=== PATIENT | male | born 1945 | race Caucasian/White ===

== ENCOUNTER → 2019-08-10 | Outpatient (CLI) | payer MEDICARE, OTHER ==
[~2019-08-10] MED LIST: ASCO500 PO; ASPI81CH PO; CALCAVITDA PO; CORTIZONE-10 PL28 GM TOP; FLAX PO; IBUP400 PO; MAGCHL64ER PO; Multivitamin1 EAC1 PO; NIGHTTIME SLEEP25 MG PO; Omeprazole20 M1 PO; TURMERIC500 MG PO
== END | disposition home or self-care (01) ==
LOC: PLD 11:12 → LAB SHORT 11:12
DX: L85.8 Other specified epidermal thickening (principal)
CPT/HCPCS: 88305

== ENCOUNTER 2021-10-10 08:24 | Day surgery (SDC) | payer MEDICARE, OTHER ==
[~2021-10-10] VITALS: Ht 188 cm; Wt 96.7 kg
[2021-10-10] MEDS ORDERED: FAMO20 (09:14)
[2021-10-10] MEDS ORDERED: TAMS.4ER PO (09:33)
--- NOTE | 2021-10-10 09:44 | NUR ---
10/10/21 [id number] LIAO IN ROOM. CORRECT PT, SITE, PROCEEDURE AND ALLERGIES CONFIRMED. PT ELECTED TO PROCEED. MEDICATED WITH ONE ML VERSED AT 0941. PT TOLERATED WELL. END AT 0976
== END 2021-10-10 10:58 | disposition home or self-care (01) ==
LOC: ORSCSDS 08:24
PROVIDERS: Orthopaedic Surgery
PROC: 01N54ZZ Release Median Nerve, Percutaneous Endoscopic Approach (ICD-10-PCS; principal; 2021-10-10 09:30)
DX: G56.02 Carpal tunnel syndrome, left upper limb (principal); J45.909 Unspecified asthma, uncomplicated; K21.9 Gastro-esophageal reflux disease without esophagitis; Z79.82 Long term (current) use of aspirin; Z79.899 Other long term (current) drug therapy
CPT/HCPCS: J1885; J2250; J7120

== ENCOUNTER 2022-05-13 08:57 | Day surgery (SDC) | payer MEDICARE, OTHER ==
[~2022-05-13] VITALS: Ht 182.9 cm; Wt 93.9 kg
[~2022-05-13 08:57] MED LIST changes: +Acetaminophen325 M1 PO; +FAMO20 PO; +MULVITA PO; +OMEP20ER PO; +TAMS.4ER PO
--- NOTE | 2022-05-14 04:48 | NUR ---
SHIFT SUMMARY POD1 L TKA, AOX4. TOLERATING PO INTAKE. ABLE TO SIT AT EOB, STAND 3XS. PAIN MANAGED WITH 10MG OXY, TORADOL AND TYLENOL. ABLE TO VOID USING URINAL AT BEDSIDE. PATIENT CALLS APPROPRIATELY. VSS. WILL REPORT OFF DAY RN.
[2022-05-14 05:28] LABS: BASOPHILS ABSOLUTE AUTO 0.01 K/mm3 (0.00-0.23); BASOPHILS PERCENT AUTO 0 % (0-2); EOSINOPHILS PERCENT AUTO 0 % (0-6); Hematocrit 37.5 % (37.0-53.0); Hemoglobin 12.4 g/dL (13.5-17.5); IMMATURE GRAN ABSOLUTE AUTO 0.02 K/mm3 (0.00-0.10); IMMATURE GRAN PERCENT AUTO 0 % (0-1); LYMPHOCYTES ABSOLUTE AUTO 1.01 K/mm3 (0.84-5.20); LYMPHOCYTES PERCENT AUTO 15 % (21-46); MONOCYTES ABSOLUTE AUTO 0.59 K/mm3 (0.16-1.47); MONOCYTES PERCENT AUTO 9 % (4-13); Mean Corpuscular HGB 31.2 pg (26.0-34.0); Mean Corpuscular HGB Conc 33.1 g/dL (31.5-36.5); Mean Corpuscular Volume 94 fL (80-100); Mean Platelet Volume 8.6 fL (9.1-12.4); NEUTROPHILS PERCENT AUTO 75 % (41-73); Platelet Count 117 K/mm3 (150-400); RDW Coefficient Variation 13.7 % (11.7-14.2); RDW Standard Deviation 47.1 fL (35.1-46.3); Red Blood Cell Count 3.98 M/mm3 (4.30-5.90); White Blood Cell Count 6.63 K/mm3 (4.00-11.30)
[2022-05-14 05:49] LABS: Bun/Creatinine Ratio 17.1 (12.0-20.0); Creatinine, Blood 1.23 mg/dL (0.60-1.20); Potassium, Blood 4.1 mmol/L (3.5-5.5)
[2022-05-14] MEDS ORDERED: ACET500 PO (10:16)
[2022-05-14] MEDS ORDERED: OXAYDO5 M1 PO (10:17)
--- NOTE | 2022-05-14 11:08 | NUR ---
discharged REVIEWED DC INSTRUCTION W/PT AND SPOUSE; VERBALIZED UNDERSTANDING. CHANGED DRESSING PRIOR TO DC AND PROVIDED AQUAC[employer] CHANGES FOR HOME. PT SIGNED DC PAPERWORK. DC'D IV, CATHETER INTACT. LEFT UNIT IN WC W/POSSESSIONS, DC PAPERWORK AND POLAR PACK TO MEET SPOUSE WAITING OUTSIDE.
== END 2022-05-14 11:00 | disposition home or self-care (01) ==
LOC: ORSCMMR 08:57 → ORD 10:45 → ORSCMMR 10:45 → ORD 14:00 → SURS 16:40 → ORSCMMR 05-14 11:00
PROVIDERS: Orthopaedic Surgery
PROC: 0SRD0J9 Replacement of Left Knee Joint with Synthetic Substitute, Cemented, Open Approach (ICD-10-PCS; principal; 2022-05-13 11:15)
PROC: 8E0Y0CZ Robotic Assisted Procedure of Lower Extremity, Open Approach (ICD-10-PCS; principal; 2022-05-13 11:15)
DX: M17.12 Unilateral primary osteoarthritis, left knee (principal); E78.5 Hyperlipidemia, unspecified; J45.909 Unspecified asthma, uncomplicated; N40.0 Benign prostatic hyperplasia without lower urinary tract symptoms; Z79.82 Long term (current) use of aspirin; Z79.899 Other long term (current) drug therapy
CPT/HCPCS: 27447; 0055T; S2900; 36415; 73560-LT; 80048; 83735; 85025; 97116; 97161; 97530; A9270; C1713; C1776; J0171; J0690; J0735; J1100; J1170; J1885; J2250; J2370; J2405; J2704; J2795; J3010; J7120

== ENCOUNTER → 2022-09-03 | Outpatient (CLI) | payer MEDICARE, OTHER ==
[~2022-09-03] MED LIST changes: +ACET500 PO; +OXAYDO5 M1 PO
== END | disposition home or self-care (01) ==
LOC: PLD 07:33 → LAB SHORT 07:33
DX: L30.8 Other specified dermatitis (principal)
CPT/HCPCS: 88305; 88313

== ENCOUNTER → 2022-12-30 | Outpatient (CLI) | payer MEDICARE, OTHER | END | disposition home or self-care (01) | LOC: LAB SHORT 14:36 → LAB 14:36 | DX: L01.01 Non-bullous impetigo (principal) | CPT/HCPCS: 87070; 87077; 87186; 87205 ==

== ENCOUNTER 2025-06-16 18:36 | Observation (INO) | payer MEDICARE ==
[~2025-06-16] VITALS: Ht 188 cm; Wt 89.9 kg
[2025-06-16 19:30] LABS: BASOPHILS ABSOLUTE AUTO 0.02 K/mm3 (0.00-0.23); BASOPHILS PERCENT AUTO 1 % (0-2); EOSINOPHILS ABSOLUTE AUTO 0.19 K/mm3 (0.00-0.68); EOSINOPHILS PERCENT AUTO 5 % (0-6); Hematocrit 42.7 % (37.0-53.0); Hemoglobin 14.6 g/dL (13.5-17.5); IMMATURE GRAN ABSOLUTE AUTO 0.01 K/mm3 (0.00-0.10); IMMATURE GRAN PERCENT AUTO 0 % (0-1); LYMPHOCYTES ABSOLUTE AUTO 1.59 K/mm3 (0.84-5.20); LYMPHOCYTES PERCENT AUTO 42 % (21-46); MONOCYTES ABSOLUTE AUTO 0.55 K/mm3 (0.16-1.47); MONOCYTES PERCENT AUTO 15 % (4-13); Mean Corpuscular HGB Conc 34.2 g/dL (31.5-36.5); Mean Corpuscular Volume 91 fL (80-100); NEUTROPHILS ABSOLUTE AUTO 1.40 K/mm3 (1.96-9.15); NEUTROPHILS PERCENT AUTO 37 % (41-73); NRBC ABSOLUTE 0.00 K/mm3 (0.00-0.02); NRBC Auto 0.0 /100 WBC (0.0-0.2); Platelet Count 100 K/mm3 (150-400); RDW Coefficient Variation 13.5 % (11.7-14.2); RDW Standard Deviation 45.5 fL (35.1-46.3)
[2025-06-16 20:21] LABS: Alanine Aminotransfer (ALT/SGP 25 U/L (12-78); Albumin, Blood 3.6 g/dL (3.4-5.0); Albumin/Globulin Ratio 1.1 (0.8-1.8); Anion Gap 8 mmol/L (3-11); Aspartate Aminotrans (AST/SGOT 32 U/L (12-37); Bilirubin, Total 0.9 mg/dL (0.1-1.0); Blood Urea Nitrogen 13 mg/dL (8-24); CO2, Blood 27 mmol/L (21-32); Calcium, Blood 8.9 mg/dL (8.5-10.1); Chloride, Blood 105 mmol/L (98-108); Creatinine, Blood 1.25 mg/dL (0.60-1.20); Ethanol (Alcohol), Blood, Med <3 mg/dL; Globulin, Blood 3.2 g/dL (2.2-4.0); Glucose, Blood 105 mg/dL (70-99); Potassium, Blood 4.1 mmol/L (3.5-5.5); Sodium, Blood 136 mmol/L (136-145); Total Protein, Blood 6.8 g/dL (6.4-8.2)
[2025-06-16 20:40] LABS: U Amphetamine Screen Not Detected; U Barbituate Screen Not Detected; U Benzodiazapine Screen Not Detected; U Buprenorphine Screen Not Detected; U Cannabinoids Screen Not Detected; U Cocaine Screen Not Detected; U Methadone Screen Not Detected; U Methamphetamine Screen Not Detected; U Opiates Screen Not Detected; U Oxycodone Screen Not Detected; U Phencyclidine Screen Not Detected
[2025-06-16] MEDS ORDERED: FLU VACC TS2025(65UP)/MF59C/PF 45 MCG/0.5 ML SYRINGE IM SCH (22:45)
[2025-06-17 00:05] VITALS: BP 129/72
[2025-06-17] MEDS ORDERED: Crestor40 MG PO (00:16)
[2025-06-17] MEDS ORDERED: QUET25 PO (00:17)
[2025-06-17] MEDS ORDERED: FISH OIL 1,2001 EAC4 PO (00:25)
[2025-06-17] MEDS ORDERED: ALCIS59.15 ML TOP (00:28)
[2025-06-17 04:15] VITALS: BP 103/53
[2025-06-17 05:57] LABS: BASOPHILS ABSOLUTE AUTO 0.03 K/mm3 (0.00-0.23); BASOPHILS PERCENT AUTO 1 % (0-2); EOSINOPHILS ABSOLUTE AUTO 0.24 K/mm3 (0.00-0.68); EOSINOPHILS PERCENT AUTO 5 % (0-6); Hematocrit 41.0 % (37.0-53.0); Hemoglobin 13.9 g/dL (13.5-17.5); IMMATURE GRAN ABSOLUTE AUTO 0.01 K/mm3 (0.00-0.10); IMMATURE GRAN PERCENT AUTO 0 % (0-1); LYMPHOCYTES ABSOLUTE AUTO 1.70 K/mm3 (0.84-5.20); LYMPHOCYTES PERCENT AUTO 37 % (21-46); MONOCYTES ABSOLUTE AUTO 0.66 K/mm3 (0.16-1.47); MONOCYTES PERCENT AUTO 14 % (4-13); Mean Corpuscular HGB Conc 33.9 g/dL (31.5-36.5); Mean Corpuscular Volume 92 fL (80-100); NEUTROPHILS ABSOLUTE AUTO 2.02 K/mm3 (1.96-9.15); NEUTROPHILS PERCENT AUTO 43 % (41-73); NRBC ABSOLUTE 0.00 K/mm3 (0.00-0.02); NRBC Auto 0.0 /100 WBC (0.0-0.2); Platelet Count 101 K/mm3 (150-400); RDW Coefficient Variation 13.6 % (11.7-14.2); RDW Standard Deviation 46.5 fL (35.1-46.3)
--- NOTE | 2025-06-17 06:08 | NUR ---
SHIFT SUMMARY PT ADMITTED TO ROOM 333 FROM ED FOR OCCULAR STROKE. PT WITHOUT LEFT EYE VISION BELOW THE MIDLINE. PT STATES EYES WERE DILATED AT EYE CLINIC BEFORE ADMISSION, AND PUPIL REACTION IS SLUGGISH IN BOTH EYES. PT REFUSED COMPLETE SKIN ASSESSMENT UPON ADMISSION- DOES STATE HISTORY OF ECZEMA, PSOROSIS, AND MONROE'S DISEASE, AND SHOWED THIS NURSE 2 AREAS OF RED/SCABBED RASHES TO RIGHT EAR AND RIGHT DIAZ. SMALL SINGULAR RED SPOTS SCATTERED- PT USED HIS OWN LOTION FOR HIS SKIN CONDITION AFTER SHOWER. PT VERY PARTICULAR ABOUT HIS MEDICATIONS- STATING HE WOULD ONLY TAKE HIS OWN MEDICATIONS. PT EDUCATED ABOUT ADDED MEDICATIONS DUE TO NEW DIAGNOSIS, BUT PT NOT RECEPTIVE TO TEACHING. 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 PT WITH TELE SHOWING SR 70'S. PT SLEPT SHORT INTERVALS DURING THE NIGHT.
[2025-06-17 06:10] LABS: Anion Gap 7.0 mmol/L (3-11); Blood Urea Nitrogen 15.0 mg/dL (8-24); CO2, Blood 27.0 mmol/L (21-32); Calcium, Blood 9.1 mg/dL (8.5-10.1); Chloride, Blood 109.0 mmol/L (98-108); Creatinine, Blood 1.22 mg/dL (0.60-1.20); Glucose, Blood 102.0 mg/dL (70-99); Potassium, Blood 3.6 mmol/L (3.5-5.5); Sodium, Blood 139.0 mmol/L (136-145)
[2025-06-17 08:28] VITALS: BP 104/58
[2025-06-17] MEDS ORDERED: Enoxaparin 40 MG/0.4 ML SYR SC SCH (09:00)
[2025-06-17] MEDS ORDERED: [UNRECOGNIZED DRUG - OTHER] TOP (09:53)
[2025-06-17] MEDS ORDERED: MUPIROCIN1 G1 TOP (09:56)
[2025-06-17] MEDS ORDERED: TRIA15CR3 TOP (09:59)
[2025-06-17 16:11] VITALS: BP 138/74
[2025-06-17] MEDS ORDERED: CLOP75 PO (16:30)
--- NOTE | 2025-06-17 18:10 | NUR ---
SHIFT SUMMARY/DISCHARGE PT AOX4, COOPERATIVE, ABLE TO MAKE NEEDS KNOWN. PT IS IND IN ROOM. ON TELE, ROOM AIR. CONTINENT. TELE DC'D BY THIS RN, IV DC'D BY THIS RN. PT OPTED FOR WC TRANSPORT [facility]NT [facility] TO LEAVE FOR HOME. BELONGINGS WENT WITH PT.
== END 2025-06-17 19:09 | disposition home or self-care (01) ==
LOC: ER 18:36 → ERHOLD 18:37 → MEDS 18:37
PROVIDERS: Emergency Medicine; Student in an Organized Health Care Education/Training Program; ADMIT Student in an Organized Health Care Education/Training Program
DX: H34.12 Central retinal artery occlusion, left eye (principal); N18.31 Chronic kidney disease, stage 3a; N40.0 Benign prostatic hyperplasia without lower urinary tract symptoms; K21.9 Gastro-esophageal reflux disease without esophagitis; L40.9 Psoriasis, unspecified; D69.6 Thrombocytopenia, unspecified; J33.8 Other polyp of sinus; E78.5 Hyperlipidemia, unspecified; Z66 Do not resuscitate; Z87.891 Personal history of nicotine dependence; Z79.899 Other long term (current) drug therapy; Z91.013 Allergy to seafood; Z91.018 Allergy to other foods
CPT/HCPCS: 36415; 70450; 70496; 70498; 70551; 80048; 80053; 80320; 83036; 85025; 93005; 93010; 93306; 99285-25; A9270; G0378; Q9967